=== PATIENT | male | born 1995 | race Caucasian/White ===

== ENCOUNTER 2023-10-13 01:49 | Emergency (ER) | payer OTHER ==
[~2023-10-13] VITALS: Ht 165.1 cm; Wt 98.0 kg
[2023-10-13 02:01] VITALS: O2SAT 98
[2023-10-13] MEDS ORDERED: MEBE100T16 MT (02:06)
[2023-10-13 03:35] VITALS: BP 105/65; PULSE 71; RESP 14; TEMP 97.9
== END 2023-10-13 03:36 | disposition home or self-care (01) ==
LOC: ER 01:49
DX: B80 Enterobiasis (principal)
CPT/HCPCS: 99283